=== PATIENT | female | born 1955 | race Caucasian/White ===

== ENCOUNTER → 2020-10-28 | Outpatient (CLI) | payer BC | LOC: KOH-I 14:10 | DX: R06.02 Shortness of breath (principal); Z72.0 Tobacco use; J43.9 Emphysema, unspecified; J98.11 Atelectasis | CPT/HCPCS: 71046 ==

== ENCOUNTER → 2020-11-06 | Outpatient (CLI) | payer BC | LOC: US 08:21 | DX: I20.9 Angina pectoris, unspecified (principal) | CPT/HCPCS: 76706; 93005 ==

== ENCOUNTER → 2021-01-12 | Outpatient (CLI) | payer BC | LOC: HEART 5 08:02 | DX: R07.9 Chest pain, unspecified (principal); R06.02 Shortness of breath | CPT/HCPCS: 78452; 93306; A9502; J2785 ==

== ENCOUNTER → 2021-02-12 | Outpatient (CLI) | payer BC | LOC: HEART 5 09:22 | DX: J44.9 Chronic obstructive pulmonary disease, unspecified (principal) | CPT/HCPCS: 94060; 94729 ==

== ENCOUNTER → 2021-04-16 | Outpatient (CLI) | payer BC | LOC: RT 08:35 | DX: J44.9 Chronic obstructive pulmonary disease, unspecified (principal) | CPT/HCPCS: 36600; 82803 ==

== ENCOUNTER → 2021-06-16 | Outpatient (CLI) | payer BC | LOC: KOH-I 14:19 | DX: F17.210 Nicotine dependence, cigarettes, uncomplicated (principal); J44.9 Chronic obstructive pulmonary disease, unspecified | CPT/HCPCS: 71271 ==